=== PATIENT | male | born 1950 | race Two or more races ===

== ENCOUNTER 2016-10-31 23:16 | Emergency (ER) | payer SELFPAY ==
[~2016-10-31] VITALS: Ht 170.2 cm; Wt 67.0 kg
[~2016-10-31 23:16] MED LIST: NAPROSYN500 MG PO; PREVACID30 M3 PO; RANITIDINE150 M1 PO; ULTRAM50 M1 PO; ZOFRAN ODT4 MG PO
[2016-11-01 00:10] LABS: HEMATOCRIT 43.6 % (39.0-50.0); HEMOGLOBIN 14.8 g/dl (14.0-18.0); IMMATURE GRANULOCYTES 0.2 % (0.0-1.0); MEAN CELL VOLUME 93.6 fL CALC (80.0-100.0); MEAN CORPUSCULAR HGB 31.8 pG CALC (26.0-32.0); MEAN CORPUSCULAR HGB CONC 33.9 g/L CALC (32.0-36.0); NEUT# 5.4 thou/uL (1.82-7.42); RED BLOOD COUNT 4.66 mill/uL (4.70-6.10); RED CELL DISTRI WIDTH 12.3 % (11.5-15.5)
[2016-11-01 00:22] LABS: ALBUMIN 3.8 g/dL (3.2-5.0); ALKALINE PHOSPHATASE 72 u/l (38-126); AMYLASE 102 u/l (30-110); ANION GAP 12 (6-22 (CALC)); BILIRUBIN, TOTAL 0.6 mg/dL (0.0-1.4); BUN 14 mg/dL (8-23); BUN/CREATININE RATIO 15 (12-20 (CALC)); CALCIUM 9.5 mg/dL (8.4-10.2); CARBON DIOXIDE 27 mmol/l (22-30); CHLORIDE 102 mmol/l (95-108); CREATININE 0.9 mg/dL (0.7-1.3); GFR > 60 ML/MIN (>=60 (CALC)); GFR FOR AFR.AMER. > 60 ML/MIN (>=60 (CALC)); GLUCOSE 101 mg/dL (82-115); LIPASE 140 u/l (23-300); POTASSIUM 4.3 mmol/l (3.5-5.1); SGOT/AST 34 u/l (19-48); SGPT/ALT 46 u/l (11-66); SODIUM 137 mmol/l (137-146); TOTAL PROTEIN 6.6 g/dL (6.3-8.2)
[2016-11-01 00:34] LABS: MYOGLOBIN 181 ng/mL (0 - 121)
[2016-11-01 02:49] LABS: URINE BILIRUBIN - DIPSTICK NEGATIVE (NEGATIVE); URINE BLOOD DIPSTICK NEGATIVE (NEGATIVE); URINE CLARITY CLEAR; URINE COLOR YELLOW; URINE GLUCOSE - DIPSTICK NEGATIVE (NEGATIVE); URINE KETONE NEGATIVE (NEGATIVE); URINE LEUK ESTERASE NEGATIVE (NEGATIVE); URINE NITRITE - DIPSTICK NEGATIVE (Negative); URINE PH 7.5 (4.5-8.0); URINE PROTEIN - DIPSTICK NEGATIVE (NEG-TRACE); URINE UROBILINOGEN - DIPSTICK 0.2 E.U./dL (0.2)
[2016-11-01] MEDS ORDERED: PREVACID30 M3 PO (04:30)
[2016-11-01 06:00] VITALS: BP 116/70
== END 2016-11-01 05:59 | disposition home or self-care (01) | DRG 392 ==
LOC: ED 23:16
PROVIDERS: Emergency Medicine
DX: R10.13 Epigastric pain (principal); K21.9 Gastro-esophageal reflux disease without esophagitis; R11.2 Nausea with vomiting, unspecified
CPT/HCPCS: S0164

== ENCOUNTER 2016-11-14 11:39 | Emergency (ER) | payer SELFPAY ==
[~2016-11-14] VITALS: Ht 170.2 cm; Wt 59.1 kg
[2016-11-14 12:45] VITALS: BP 107/64
== END 2016-11-14 12:45 | disposition home or self-care (01) | DRG 392 ==
LOC: ED 11:39
DX: R10.9 Unspecified abdominal pain (principal)

== ENCOUNTER 2017-05-11 08:00 | Emergency (ER) | payer SELFPAY ==
[~2017-05-11] VITALS: Ht 170.2 cm; Wt 72.0 kg
[2017-05-11] MEDS ORDERED: DIFLUCAN150 MG PO (08:31)
[2017-05-11] MEDS ORDERED: BACTRIM DS1 TAB PO (08:31)
[2017-05-11 09:05] VITALS: BP 132/66
== END 2017-05-11 09:11 | disposition home or self-care (01) | DRG 603 ==
LOC: ED 08:00
DX: L03.115 Cellulitis of right lower limb (principal); M79.671 Pain in right foot; R22.41 Localized swelling, mass and lump, right lower limb

== ENCOUNTER 2017-05-12 07:57 | Emergency (ER) | payer SELFPAY ==
[~2017-05-12] VITALS: Ht 170.2 cm; Wt 67.7 kg
[~2017-05-12 07:57] MED LIST changes: +BACTRIM DS1 TAB PO; +DIFLUCAN150 MG PO
[2017-05-12 09:39] LABS: ALBUMIN 3.7 g/dL (3.2-5.0); ALKALINE PHOSPHATASE 65 u/l (38-126); ANION GAP 13 (6-22 (CALC)); BILIRUBIN, TOTAL 0.8 mg/dL (0.0-1.4); BUN 15 mg/dL (8-23); BUN/CREATININE RATIO 13 (12-20 (CALC)); CALCIUM 9.2 mg/dL (8.4-10.2); CARBON DIOXIDE 25 mmol/l (22-30); CHLORIDE 106 mmol/l (95-108); CREATININE 1.1 mg/dL (0.7-1.3); GFR > 60 ML/MIN (>=60 (CALC)); GFR FOR AFR.AMER. > 60 ML/MIN (>=60 (CALC)); GLUCOSE 78 mg/dL (82-115); POTASSIUM 4.8 mmol/l (3.5-5.1); SGOT/AST 56 u/l (19-48); SGPT/ALT 44 u/l (11-66); SODIUM 139 mmol/l (137-146); TOTAL PROTEIN 6.2 g/dL (6.3-8.2)
[2017-05-12 09:44] LABS: HEMATOCRIT 44.2 % (39.0-50.0); HEMOGLOBIN 14.8 g/dl (14.0-18.0); IMMATURE GRANULOCYTES 0.6 % (0.0-1.0); MEAN CELL VOLUME 95.1 fL CALC (80.0-100.0); MEAN CORPUSCULAR HGB 31.8 pG CALC (26.0-32.0); MEAN CORPUSCULAR HGB CONC 33.5 g/L CALC (32.0-36.0); NEUT# 3.89 thou/uL (1.82-7.42); RED BLOOD COUNT 4.65 mill/uL (4.70-6.10); RED CELL DISTRI WIDTH 13.1 % (11.5-15.5)
[2017-05-12 12:11] VITALS: BP 105/72
== END 2017-05-12 12:15 | disposition home or self-care (01) | DRG 603 ==
LOC: ED 07:57
PROVIDERS: Emergency Medicine
DX: L03.031 Cellulitis of right toe (principal); L03.115 Cellulitis of right lower limb; M79.671 Pain in right foot

== ENCOUNTER 2017-05-13 09:07 | Emergency (ER) | payer SELFPAY ==
[~2017-05-13] VITALS: Ht 170.2 cm; Wt 72.0 kg
[2017-05-13 10:02] VITALS: BP 111/72
== END 2017-05-13 10:02 | disposition home or self-care (01) | DRG 603 ==
LOC: ED 09:07
DX: L03.115 Cellulitis of right lower limb (principal)

== ENCOUNTER 2017-07-18 12:09 | Emergency (ER) | payer SELFPAY ==
[~2017-07-18] VITALS: Ht 170.2 cm; Wt 70.0 kg
[2017-07-18 13:25] LABS: HEMATOCRIT 42.6 % (39.0-50.0); HEMOGLOBIN 14.2 g/dl (14.0-18.0); IMMATURE GRANULOCYTES 0.2 % (0.0-1.0); MEAN CELL VOLUME 95.9 fL CALC (80.0-100.0); MEAN CORPUSCULAR HGB CONC 33.3 g/L CALC (32.0-36.0); NEUT# 6.35 thou/uL (1.82-7.42); RED BLOOD COUNT 4.44 mill/uL (4.70-6.10); RED CELL DISTRI WIDTH 12.9 % (11.5-15.5)
[2017-07-18 13:32] LABS: ALBUMIN 4.2 g/dL (3.2-5.0); ALKALINE PHOSPHATASE 67 u/l (38-126); ANION GAP 14 (6-22 (CALC)); BILIRUBIN, TOTAL 1.1 mg/dL (0.0-1.4); BUN 15 mg/dL (8-23); BUN/CREATININE RATIO 16 (12-20 (CALC)); CALCIUM 9.3 mg/dL (8.4-10.2); CARBON DIOXIDE 29 mmol/l (22-30); CHLORIDE 103 mmol/l (95-108); CREATININE 0.9 mg/dL (0.7-1.3); GFR > 60 ML/MIN (>=60 (CALC)); GFR FOR AFR.AMER. > 60 ML/MIN (>=60 (CALC)); GLUCOSE 84 mg/dL (82-115); LIPASE 131 u/l (23-300); POTASSIUM 4.9 mmol/l (3.5-5.1); SGOT/AST 54 u/l (19-48); SGPT/ALT 41 u/l (11-66); SODIUM 141 mmol/l (137-146); TOTAL PROTEIN 7.2 g/dL (6.3-8.2)
[2017-07-18 13:43] LABS: INFLUENZA A NONE DETECTED (NONE DETECT); INFLUENZA B NONE DETECTED (NONE DETECT)
[2017-07-18 14:48] LABS: URINE BILIRUBIN - DIPSTICK NEGATIVE (NEGATIVE); URINE BLOOD DIPSTICK NEGATIVE (NEGATIVE); URINE COLOR YELLOW; URINE GLUCOSE - DIPSTICK NEGATIVE (NEGATIVE); URINE KETONE NEGATIVE (NEGATIVE); URINE LEUK ESTERASE NEGATIVE (NEGATIVE); URINE NITRITE - DIPSTICK NEGATIVE (Negative); URINE PH 6.5 (4.5-8.0); URINE PROTEIN - DIPSTICK NEGATIVE (NEG-TRACE)
[2017-07-18 14:50] LABS: URINE CLARITY CLEAR
[2017-07-18] MEDS ORDERED: ZOFRAN4 M1 PO (16:03)
[2017-07-18 16:19] VITALS: BP 100/54
== END 2017-07-18 16:38 | disposition home or self-care (01) | DRG 153 ==
LOC: ED 12:09
PROVIDERS: Family Medicine
DX: J06.9 Acute upper respiratory infection, unspecified (principal); J34.89 Other specified disorders of nose and nasal sinuses; K52.9 Noninfective gastroenteritis and colitis, unspecified; R10.13 Epigastric pain; R10.12 Left upper quadrant pain; R10.11 Right upper quadrant pain; R51 Headache; R05 Cough; R11.2 Nausea with vomiting, unspecified
CPT/HCPCS: Q9967

== ENCOUNTER 2017-10-10 06:16 | Emergency (ER) | payer SELFPAY ==
[~2017-10-10] VITALS: Ht 170.2 cm; Wt 69.8 kg
[~2017-10-10 06:16] MED LIST changes: +ZOFRAN4 M1 PO
[2017-10-10 07:27] LABS: HEMATOCRIT 43.3 % (39.0-50.0); HEMOGLOBIN 14.5 g/dl (14.0-18.0); IMMATURE GRANULOCYTES 0.3 % (0.0-1.0); MEAN CELL VOLUME 93.1 fL CALC (80.0-100.0); MEAN CORPUSCULAR HGB 31.2 pG CALC (26.0-32.0); MEAN CORPUSCULAR HGB CONC 33.5 g/L CALC (32.0-36.0); NEUT# 4.65 thou/uL (1.82-7.42); RED BLOOD COUNT 4.65 mill/uL (4.70-6.10); RED CELL DISTRI WIDTH 13.5 % (11.5-15.5)
[2017-10-10 07:35] LABS: AMYLASE 105 u/l (30-110); LIPASE 113 u/l (23-300)
[2017-10-10 07:37] LABS: ALBUMIN 3.6 g/dL (3.2-5.0); ALKALINE PHOSPHATASE 58 u/l (38-126); ANION GAP 16 (6-22 (CALC)); BILIRUBIN, TOTAL 1.4 mg/dL (0.0-1.4); BUN 14 mg/dL (8-23); BUN/CREATININE RATIO 16 (12-20 (CALC)); CARBON DIOXIDE 23 mmol/l (22-30); CHLORIDE 103 mmol/l (95-108); CREATININE 0.9 mg/dL (0.7-1.3); GFR > 60 ML/MIN (>=60 (CALC)); GFR FOR AFR.AMER. > 60 ML/MIN (>=60 (CALC)); POTASSIUM 4.5 mmol/l (3.5-5.1); SGOT/AST 30 u/l (19-48); SGPT/ALT 36 u/l (11-66); SODIUM 137 mmol/l (137-146); TOTAL PROTEIN 6.5 g/dL (6.3-8.2)
[2017-10-10 10:15] LABS: URINE BILIRUBIN - DIPSTICK NEGATIVE (NEGATIVE); URINE BLOOD DIPSTICK TRACE-LYSED (NEGATIVE); URINE CLARITY CLEAR; URINE COLOR YELLOW; URINE GLUCOSE - DIPSTICK NEGATIVE (NEGATIVE); URINE KETONE NEGATIVE (NEGATIVE); URINE LEUK ESTERASE NEGATIVE (NEGATIVE); URINE NITRITE - DIPSTICK NEGATIVE (Negative); URINE PROTEIN - DIPSTICK NEGATIVE (NEG-TRACE); URINE SPECIFIC GRAVITY 1.025; URINE UROBILINOGEN - DIPSTICK 0.2 E.U./dL (0.2)
[2017-10-10] MEDS ORDERED: PROTONIX40 MG PO (10:56)
[2017-10-10] MEDS ORDERED: ZOFRAN4 MG/TAB PO (10:56)
[2017-10-10] MEDS ORDERED: BENTYL10 MG PO (10:56)
[2017-10-10 11:11] VITALS: BP 103/74
== END 2017-10-10 11:09 | disposition home or self-care (01) | DRG 392 ==
LOC: ED 06:16
PROVIDERS: Emergency Medicine
DX: R10.84 Generalized abdominal pain (principal); K21.9 Gastro-esophageal reflux disease without esophagitis; R11.10 Vomiting, unspecified
CPT/HCPCS: Q9967

== ENCOUNTER 2017-10-17 21:45 | Emergency (ER) | payer SELFPAY ==
[~2017-10-17] VITALS: Ht 170.2 cm; Wt 69.6 kg
[~2017-10-17 21:45] MED LIST changes: +BENTYL10 MG PO; +PROTONIX40 MG PO; +ZOFRAN4 MG/TAB PO
[2017-10-17 23:27] LABS: ALKALINE PHOSPHATASE 73 u/l (38-126); AMYLASE 107 u/l (30-110); BILIRUBIN, TOTAL 1.2 mg/dL (0.0-1.4); BUN 19 mg/dL (8-23); BUN/CREATININE RATIO 18 (12-20 (CALC)); CHLORIDE 105 mmol/l (95-108); CREATININE 1.1 mg/dL (0.7-1.3); GFR > 60 ML/MIN (>=60 (CALC)); GFR FOR AFR.AMER. > 60 ML/MIN (>=60 (CALC)); LIPASE 142 u/l (23-300); POTASSIUM 4.5 mmol/l (3.5-5.1); SGOT/AST 38 u/l (19-48); SGPT/ALT 41 u/l (11-66); TOTAL PROTEIN 7.5 g/dL (6.3-8.2)
[2017-10-17 23:37] LABS: ALBUMIN 4.4 g/dL (3.2-5.0); ANION GAP 15 (6-22 (CALC)); CARBON DIOXIDE 30 mmol/l (22-30); HEMATOCRIT 46.2 % (39.0-50.0); HEMOGLOBIN 15.2 g/dl (14.0-18.0); IMMATURE GRANULOCYTES 0.3 % (0.0-1.0); MEAN CELL VOLUME 94.7 fL CALC (80.0-100.0); MEAN CORPUSCULAR HGB 31.1 pG CALC (26.0-32.0); MEAN CORPUSCULAR HGB CONC 32.9 g/L CALC (32.0-36.0); NEUT# 4.4 thou/uL (1.82-7.42); RED BLOOD COUNT 4.88 mill/uL (4.70-6.10); RED CELL DISTRI WIDTH 13.4 % (11.5-15.5); SODIUM 145 mmol/l (137-146); URINE BILIRUBIN - DIPSTICK NEGATIVE (NEGATIVE); URINE BLOOD DIPSTICK NEGATIVE (NEGATIVE); URINE COLOR YELLOW; URINE GLUCOSE - DIPSTICK NEGATIVE (NEGATIVE); URINE KETONE NEGATIVE (NEGATIVE); URINE LEUK ESTERASE NEGATIVE (NEGATIVE); URINE NITRITE - DIPSTICK NEGATIVE (Negative); URINE PH 7.5 (4.5-8.0); URINE PROTEIN - DIPSTICK NEGATIVE (NEG-TRACE); URINE UROBILINOGEN - DIPSTICK 0.2 E.U./dL (0.2)
[2017-10-17 23:42] LABS: URINE CLARITY CLEAR
[2017-10-18] MEDS ORDERED: PROTONIX40 MG PO (00:47)
[2017-10-18 01:17] VITALS: BP 134/81
== END 2017-10-18 01:27 | disposition home or self-care (01) | DRG 392 ==
LOC: ED 21:45
PROVIDERS: Emergency Medicine
DX: R10.84 Generalized abdominal pain (principal); K21.9 Gastro-esophageal reflux disease without esophagitis
CPT/HCPCS: S0164

== ENCOUNTER 2018-09-15 08:03 | Emergency (ER) | payer BC ==
[~2018-09-15] VITALS: Ht 170.2 cm; Wt 80.0 kg
[2018-09-15] MEDS ORDERED: ALL DAY10 MG PO (08:40)
[2018-09-15] MEDS ORDERED: FLONASE AL50 MCG/ACT (08:40)
[2018-09-15 09:08] VITALS: BP 125/70
== END 2018-09-15 09:35 | disposition home or self-care (01) | DRG 153 ==
LOC: ED 08:03
DX: J30.9 Allergic rhinitis, unspecified (principal); R05 Cough; R09.89 Other specified symptoms and signs involving the circulatory and respiratory systems; R09.81 Nasal congestion

== ENCOUNTER 2019-04-13 20:22 | Emergency (ER) | payer BC ==
[~2019-04-13] VITALS: Ht 170.2 cm; Wt 65.9 kg
[~2019-04-13 20:22] MED LIST changes: +ALL DAY10 MG PO; +FLONASE AL50 MCG/ACT
[2019-04-13 21:23] LABS: HEMATOCRIT 42.8 % (39.0-50.0); HEMOGLOBIN 14.1 g/dl (14.0-18.0); IMMATURE GRANULOCYTES 0.2 % (0.0-5.0); MEAN CELL VOLUME 92.8 fL CALC (80.0-100.0); MEAN CORPUSCULAR HGB 30.6 pG CALC (26.0-32.0); MEAN CORPUSCULAR HGB CONC 32.9 g/L CALC (32.0-36.0); NEUT# 3.31 thou/uL (1.82-7.42); RED BLOOD COUNT 4.61 mill/uL (4.70-6.10); RED CELL DISTRI WIDTH 13.1 % (11.5-15.5)
[2019-04-13 21:42] LABS: ALBUMIN 3.9 g/dL (3.2-5.0); ALKALINE PHOSPHATASE 76 u/l (38-126); ANION GAP 11 (6-22 (CALC)); BUN 14 mg/dL (8-23); BUN/CREATININE RATIO 12 (12-20 (CALC)); CARBON DIOXIDE 26 mmol/l (22-30); CHLORIDE 106 mmol/l (95-108); CREATININE 1.1 mg/dL (0.7-1.3); GFR > 60 ML/MIN (>=60 (CALC)); GFR FOR AFR.AMER. > 60 ML/MIN (>=60 (CALC)); POTASSIUM 4.4 mmol/l (3.5-5.1); SGOT/AST 31 u/l (19-48); SODIUM 139 mmol/l (137-146); TOTAL PROTEIN 6.7 g/dL (6.3-8.2)
[2019-04-13 21:43] LABS: BILIRUBIN, TOTAL 0.4 mg/dL (0.0-1.4)
[2019-04-13 22:00] VITALS: BP 107/68
== END 2019-04-13 22:00 | disposition home or self-care (01) | DRG 948 ==
LOC: ED 20:22
PROVIDERS: Emergency Medicine
DX: R53.1 Weakness (principal)

== ENCOUNTER 2019-05-30 06:55 | Emergency (ER) | payer OTHER, BC ==
[~2019-05-30] VITALS: Ht 170.2 cm; Wt 84.0 kg
[2019-05-30 08:17] LABS: HEMOGLOBIN 15.2 g/dl (14.0-18.0); IMMATURE GRANULOCYTES 0.4 % (0.0-5.0); MEAN CELL VOLUME 93.1 fL CALC (80.0-100.0); MEAN CORPUSCULAR HGB 30.8 pG CALC (26.0-32.0); NEUT# 2.82 thou/uL (1.82-7.42); RED BLOOD COUNT 4.94 mill/uL (4.70-6.10); RED CELL DISTRI WIDTH 12.8 % (11.5-15.5)
[2019-05-30 08:36] LABS: ALBUMIN 3.9 g/dL (3.2-5.0); ALKALINE PHOSPHATASE 75 u/l (38-126); ANION GAP 11 (6-22 (CALC)); BUN 11 mg/dL (8-23); BUN/CREATININE RATIO 10 (12-20 (CALC)); CARBON DIOXIDE 25 mmol/l (22-30); CHLORIDE 106 mmol/l (95-108); CREATININE 1.1 mg/dL (0.7-1.3); GFR > 60 ML/MIN (>=60 (CALC)); GFR FOR AFR.AMER. > 60 ML/MIN (>=60 (CALC)); LIPASE 145 u/l (23-300); POTASSIUM 4.4 mmol/l (3.5-5.1); SGOT/AST 35 u/l (19-48); SODIUM 138 mmol/l (137-146)
[2019-05-30 08:39] LABS: URINE BILIRUBIN - DIPSTICK NEGATIVE (NEGATIVE); URINE BLOOD DIPSTICK NEGATIVE (NEGATIVE); URINE COLOR YELLOW; URINE GLUCOSE - DIPSTICK NEGATIVE (NEGATIVE); URINE KETONE NEGATIVE (NEGATIVE); URINE LEUK ESTERASE NEGATIVE (NEGATIVE); URINE NITRITE - DIPSTICK NEGATIVE (Negative); URINE PROTEIN - DIPSTICK NEGATIVE (NEG-TRACE); URINE SPECIFIC GRAVITY <=1.005; URINE UROBILINOGEN - DIPSTICK 0.2 E.U./dL (0.2)
[2019-05-30 08:45] LABS: BILIRUBIN, TOTAL 0.6 mg/dL (0.0-1.4)
[2019-05-30 12:55] VITALS: BP 131/70
== END 2019-05-30 12:55 | disposition home or self-care (01) | DRG 999 ==
LOC: ED 06:55
PROVIDERS: Family Medicine
DX: R07.89 Other chest pain (principal); S06.9X1A Unspecified intracranial injury with loss of consciousness of 30 minutes or less, initial encounter; R59.0 Localized enlarged lymph nodes; V59.40XA Driver of pick-up truck or van injured in collision with unspecified motor vehicles in traffic accident, initial encounter
CPT/HCPCS: Q9967

== ENCOUNTER 2020-06-09 11:06 | Emergency (ER) | payer BC ==
[~2020-06-09] VITALS: Ht 170.2 cm; Wt 72.0 kg
[2020-06-09] MEDS ORDERED: MEDDOSEPAK PO (11:39)
[2020-06-09] MEDS ORDERED: BENADRYL25 M1 PO (11:39)
[2020-06-09 11:50] VITALS: BP 122/64
== END 2020-06-09 11:50 | disposition home or self-care (01) | DRG 607 ==
LOC: ED 11:06
DX: L50.6 Contact urticaria (principal)

== ENCOUNTER 2020-06-30 21:06 | Emergency (ER) | payer BC ==
[~2020-06-30] VITALS: Ht 170.2 cm; Wt 72.0 kg
[~2020-06-30 21:06] MED LIST changes: +BENADRYL25 M1 PO; +MEDDOSEPAK PO
[2020-06-30] MEDS ORDERED: TRIAMCINOLON0.11 EX (21:28)
[2020-06-30 21:35] VITALS: BP 112/64
== END 2020-06-30 21:37 | disposition home or self-care (01) | DRG 607 ==
LOC: ED 21:06
DX: L30.0 Nummular dermatitis (principal)

== ENCOUNTER 2020-12-05 12:27 | Emergency (ER) | payer SELFPAY ==
[~2020-12-05] VITALS: Ht 170.2 cm; Wt 73.0 kg
[~2020-12-05 12:27] MED LIST changes: +TRIAMCINOLON0.11 EX
[2020-12-05] MEDS ORDERED: CYCLOBENZAPR5 MG PO (12:43)
[2020-12-05] MEDS ORDERED: MOTRIN400 MG/TAB PO (12:43)
[2020-12-05 13:23] VITALS: BP 110/76
== END 2020-12-05 13:32 | disposition home or self-care (01) | DRG 552 ==
LOC: ED 12:27
DX: M54.5 Low back pain (principal); K21.9 Gastro-esophageal reflux disease without esophagitis

== ENCOUNTER 2020-12-10 22:30 | Emergency (ER) | payer SELFPAY ==
[~2020-12-10] VITALS: Ht 170.2 cm; Wt 68.0 kg
[~2020-12-10 22:30] MED LIST changes: +CYCLOBENZAPR5 MG PO; +MOTRIN400 MG/TAB PO
[2020-12-10 23:43] LABS: HEMATOCRIT 45.2 % (39.0-50.0); HEMOGLOBIN 14.7 g/dl (14.0-18.0); IMMATURE GRANULOCYTES 0.2 % (0.0-5.0); MEAN CELL VOLUME 93.8 fL CALC (80.0-100.0); MEAN CORPUSCULAR HGB 30.5 pG CALC (26.0-32.0); MEAN CORPUSCULAR HGB CONC 32.5 g/dL CAL (32.0-36.0); NEUT# 6.84 thou/uL (1.82-7.42); RED BLOOD COUNT 4.82 mill/uL (4.70-6.10); RED CELL DISTRI WIDTH 12.6 % (11.5-15.5)
[2020-12-10 23:59] LABS: ALBUMIN 3.9 g/dL (3.2-5.0); ALKALINE PHOSPHATASE 68 u/l (38-126); AMYLASE 89 u/l (30-110); ANION GAP 12 (6-22 (CALC)); BUN 17 mg/dL (8-23); BUN/CREATININE RATIO 21 (12-20 (CALC)); CARBON DIOXIDE 25 mmol/l (22-30); CHLORIDE 100 mmol/l (95-108); CREATININE 0.8 mg/dL (0.7-1.3); GFR > 60 ML/MIN (>=60 (CALC)); GFR FOR AFR.AMER. > 60 ML/MIN (>=60 (CALC)); LIPASE 149 u/l (23-300); POTASSIUM 4.4 mmol/l (3.5-5.1); SGOT/AST 31 u/l (19-48); SODIUM 133 mmol/l (137-146); TOTAL PROTEIN 6.8 g/dL (6.3-8.2)
[2020-12-11 00:10] LABS: MYOGLOBIN 138 ng/mL (0 - 121)
[2020-12-11] MEDS ORDERED: ONDANSETRON4 MG PO (01:15)
[2020-12-11] MEDS ORDERED: NAPROXEN500 MG PO (01:15)
[2020-12-11] MEDS ORDERED: PREVACID30 M3 PO (01:15)
[2020-12-11 01:53] VITALS: BP 133/88
[2020-12-11 01:57] LABS: URINE BILIRUBIN - DIPSTICK NEGATIVE (NEGATIVE); URINE BLOOD DIPSTICK TRACE-INTACT (NEGATIVE); URINE COLOR YELLOW; URINE GLUCOSE - DIPSTICK NEGATIVE (NEGATIVE); URINE KETONE NEGATIVE (NEGATIVE); URINE LEUK ESTERASE NEGATIVE (NEGATIVE); URINE PROTEIN - DIPSTICK NEGATIVE (NEG-TRACE); URINE UROBILINOGEN - DIPSTICK 0.2 E.U./dL (0.2)
[2020-12-11 01:59] LABS: URINE NITRITE - DIPSTICK NEGATIVE (Negative)
== END 2020-12-11 02:10 | disposition home or self-care (01) | DRG 392 ==
LOC: ED 22:30
PROVIDERS: Emergency Medicine
DX: K29.70 Gastritis, unspecified, without bleeding (principal); K59.00 Constipation, unspecified; M54.5 Low back pain; K21.9 Gastro-esophageal reflux disease without esophagitis; Z20.822 Contact with and (suspected) exposure to COVID-19
CPT/HCPCS: Q9967; S0164

== ENCOUNTER 2021-02-02 07:52 | Emergency (ER) | payer SELFPAY ==
[~2021-02-02 07:52] MED LIST changes: +NAPROXEN500 MG PO; +ONDANSETRON4 MG PO
[2021-02-02 09:59] VITALS: BP 140/66
== END 2021-02-02 10:10 | disposition home or self-care (01) | DRG 153 ==
LOC: ED 07:52
DX: J06.9 Acute upper respiratory infection, unspecified (principal); K21.9 Gastro-esophageal reflux disease without esophagitis; Z20.822 Contact with and (suspected) exposure to COVID-19

== ENCOUNTER 2021-10-30 16:05 | Emergency (ER) | payer OTHER ==
[2021-10-30] VITALS (13 sets, daily range): BP systolic 87–111; BP diastolic 51–74
[~2021-10-30] VITALS: Ht 170.2 cm; Wt 79.0 kg
[2021-10-30 19:36] LABS: URINE BILIRUBIN - DIPSTICK NEGATIVE (NEGATIVE); URINE BLOOD DIPSTICK NEGATIVE (NEGATIVE); URINE COLOR YELLOW; URINE GLUCOSE - DIPSTICK NEGATIVE (NEGATIVE); URINE KETONE NEGATIVE (NEGATIVE); URINE LEUK ESTERASE NEGATIVE (NEGATIVE); URINE PROTEIN - DIPSTICK NEGATIVE (NEG-TRACE); URINE SPECIFIC GRAVITY 1.015; URINE UROBILINOGEN - DIPSTICK 0.2 E.U./dL (0.2)
[2021-10-30 19:43] LABS: URINE NITRITE - DIPSTICK NEGATIVE (Negative)
[2021-10-30] MEDS ORDERED: NAPROXEN500 MG PO (19:57)
[2021-10-30] MEDS ORDERED: METHOCARBAMOL500 MG PO (19:57)
== END 2021-10-30 20:01 | disposition home or self-care (01) | DRG 552 ==
LOC: ED 16:05
PROVIDERS: Nurse Practitioner
DX: M54.50 Low back pain, unspecified (principal); K21.9 Gastro-esophageal reflux disease without esophagitis